=== PATIENT | male | born 1995 | race Two or more races ===

== ENCOUNTER 2025-06-28 20:59 | Emergency (ER) | payer OTHER ==
[~2025-06-28] VITALS: Ht 190.5 cm; Wt 122.7 kg
[2025-06-28 21:02] VITALS: BP 138/61; PULSE 95; RESP 17; TEMP 98.1; O2SAT 91
== END 2025-06-28 23:20 | disposition left against medical advice (07) ==
LOC: EMS 20:59
DX: G40.909 Epilepsy, unspecified, not intractable, without status epilepticus (principal); Z53.29 Procedure and treatment not carried out because of patient's decision for other reasons; V89.2XXA Person injured in unspecified motor-vehicle accident, traffic, initial encounter; Y93.89 Activity, other specified; Y92.410 Unspecified street and highway as the place of occurrence of the external cause; Y99.8 Other external cause status
CPT/HCPCS: 99283; Z7502